=== PATIENT | female | born 1970 | race African-American/Black ===

== ENCOUNTER 2020-03-25 07:15 | Day surgery (SDC) | payer BC ==
[2020-03-25 08:10] VITALS: BP 139/89; TEMP 98.2; BMI 26.2
--- NOTE | 2020-03-25 09:05 | RAD ---
Myelogram of the cervical and thoracic spine: 03/25/2020 HISTORY: Spondylosis with myelopathy FINDINGS: Informed consent was obtained prior to the procedure. Event Staff imaging demonstrates no evidenc e for anterolisthesis or retrolisthesis within the lumbar, thoracic, or cervical spine. There is minimal retrolisthesis at C4-5 and C5-6 and there is disc space narrowing with mild anterior osteophy te formation at C4-5 C5-6 and C6-7. Ventriculoperitoneal shunt tubing is present overlying the right aspect of the neck, the midline ches t, and curling within the midline lower abdomen. Spina bifida occulta noted at L5. Following obtaining transplant registered nurse imaging, the patient was placed on the fluoroscopic table in the oblique pr one position and skin overlying the lower lumbar spine was prepped and draped in normal sterile fashion. Skin was anesthetized at the L4 level. Using intermittent fluoroscopic evidence, a 22-gauge spinal needle is advanced into the thecal sac and removal of the stylet yields clear cerebrospinal fluid. Subsequently, approximately 12 cc of Isovue 300 was injected, outlining nerve roots of the cau da equina and filling the thecal sac. Needle was removed. Patient tolerated the procedure well. The patient's head was then tilted down to extend contrast media into the cervical and thoracic regio ns. Exposure data: 0.6 minutes of fluoroscopic time, 212.1 mcg/sq m IMPRESSION: Successful cervical and thoracic spine myelogram. CT myelogram to follow.
--- NOTE | 2020-03-25 09:21 | CT ---
Cervical spine CT myelogram: 03/25/2020 HISTORY: Pain, myelopathy TECHNIQUE: Following the intrathecal administration of Isovue-300, axial CT imaging at 2.5 mm interva ls obtained from the skull base through the lung apices. Coronal and sagittal reformatted imaging obtained FINDINGS: The visualized lung apices are unremarkable. The atlantoaxial interspace, occipital condyles, dens, and C1-2 articulation appear unremarkable. Craniocervical and cervicothoracic junctions unremarkable. No anterolisthesis or retrolisthesis. No p revertebral soft tissue swelling. C2-3: No central canal or neural foraminal stenosis C3-4: Mild disc space narrowing with no central canal or neural foraminal stenosis. C4-5: There is disc space narrowing with mild posterior osteophyte formation and mild disc bulge part ially effacing the ventral thecal sac with a mild degree of central canal stenosis. There is mild bilateral uncovertebral osteophyte formation, right greater than left with mild bilateral neural fora priscilla stenosis, right greater than left. C5-6: There is disc space narrowing with anterior osteophyte formation. There is posterior osteophyte with an associated disc bulge with effaces the ventral thecal sac and abuts the ventral aspect of the cord causing a mild/moderate degree of central canal stenosis. There is mild bilateral uncoverteb ral osteophyte formation with moderate left and mild right neural foraminal stenosis. C6-7: There is disc space narrowing with posterior osteophyte formation and disc bulge partially effa cing the ventral thecal sac and leading to mild central canal stenosis. Mild bilateral uncovertebral osteophyte formation. Mild bilateral neural foraminal stenosis, left greater than right . C7-T1: No central canal or neural foraminal stenosis. No worrisome lytic or blastic bone lesion. No acute fracture or dislocation. IMPRESSION: Multilevel mid cervical spine degenerative change as described above.
--- NOTE | 2020-03-25 09:28 | CT ---
CT myelogram of the thoracic spine: 03/25/2020 COMPARISON: None HISTORY: Thoracic pain TECHNIQUE: Following the intrathecal administration of iodinated contrast media, axial CT imaging obt ained at 3.75 mm intervals through the thoracic spine with coronal and sagittal reformatted imaging FINDINGS: The imaged lung parenchyma appears unremarkable. The thoracic vertebral body height appears unremarkable. No anterolisthesis or retrolisthesis. There is a mild degree of upper thoracic spine dextroscoliosis with apex at T4-5. Conus medullaris terminates in the L1 region. T1-2: No central canal or neural foraminal stenosis. T2-3: No central canal or neural foraminal stenosis T3-4: There is right-sided facet hypertrophy with osteophyte encroachment on the right neural foramen and a mild to moderate degree of right neural foraminal stenosis. No significant central canal or left neural foraminal stenosis. T4-5: There is disc space narrowing with anterior osteophyte formation and mild right-sided facet hyp ertrophy. No significant central canal or neural foraminal stenosis. T5-6: There is disc space narrowing with mild anterior osteophyte formation. There is no osseous caus e of significant central canal or neural foraminal stenosis. T6-7: No significant central canal or neural foraminal stenosis T7-8: Mild anterior osteophyte formation with no significant central canal or neural foraminal stenos is T8-9: No significant central canal or neural foraminal stenosis T9-10: No central canal or neural foraminal stenosis T10-11: No central canal or neural foraminal stenosis T11-12: No central canal or neural foraminal stenosis T12-L1: No central canal or neural foraminal stenosis. No worrisome lytic or blastic bone lesion. No acute fracture or dislocation. IMPRESSION: Mild degenerative change of the thoracic spine, most prominent at T3-4 on the right as de tailed above.
[2020-03-25] MEDS ORDERED: Iopamidol-M 300 61% 15 ML VIAL ONE (10:43)
== END 2020-03-25 10:20 | disposition home or self-care (01) ==
LOC: RAD 07:15
PROVIDERS: ATTEND Neurological Surgery
PROC: B02B1ZZ Computerized Tomography (CT Scan) of Spinal Cord using Low Osmolar Contrast (ICD-10-PCS; principal; 2020-03-25)
DX: M47.12 Other spondylosis with myelopathy, cervical region (principal); M48.02 Spinal stenosis, cervical region; M48.04 Spinal stenosis, thoracic region; M43.12 Spondylolisthesis, cervical region; J45.909 Unspecified asthma, uncomplicated; I10 Essential (primary) hypertension; F41.9 Anxiety disorder, unspecified; Z79.899 Other long term (current) drug therapy
CPT/HCPCS: 62305; 72126; 72129; Q9967

== ENCOUNTER 2023-08-09 14:12 | Outpatient (CLI) | payer BC | END 2023-08-09 14:13 | disposition home or self-care (01) | LOC: BICMAMMO 14:12 | PROVIDERS: ATTEND Family Medicine | DX: Z12.31 Encounter for screening mammogram for malignant neoplasm of breast (principal); Z80.3 Family history of malignant neoplasm of breast; Z91.89 Other specified personal risk factors, not elsewhere classified | CPT/HCPCS: 77063; 77067 ==

== ENCOUNTER 2024-12-27 12:57 | Outpatient (CLI) | payer BC | END 2024-12-27 12:58 | disposition home or self-care (01) | LOC: BICMAMMO 12:57 | PROVIDERS: ATTEND Family Medicine | DX: Z12.31 Encounter for screening mammogram for malignant neoplasm of breast (principal); M85.89 Other specified disorders of bone density and structure, multiple sites; M81.0 Age-related osteoporosis without current pathological fracture; Z80.3 Family history of malignant neoplasm of breast; Z91.89 Other specified personal risk factors, not elsewhere classified | CPT/HCPCS: 77063; 77067; 77080 ==